=== PATIENT | female | born 2000 | race Caucasian/White ===

== ENCOUNTER 2023-10-30 19:45 | Emergency (ER) | payer MEDICAID, OTHER ==
[~2023-10-30] VITALS: Ht 157.5 cm; Wt 53.5 kg
[2023-10-30] MEDS ORDERED: TETRAcaine 5 ML BOTTLE ONE (21:19)
[2023-10-30] MEDS ORDERED: FLUORESCEIN SODIUM OPHTH 1 EA STRIP ONE (21:19)
[2023-10-30] MEDS: TETRAcaine 5 ML BOTTLE EACHEYE ONE (21:26)
[2023-10-30] MEDS ORDERED: CIPR2.5D14 EACHEYE (21:26)
[2023-10-30] MEDS: FLUORESCEIN SODIUM OPHTH 1 EA STRIP OP ONE (21:26)
[2023-10-30 21:34] VITALS: BP 114/68; TEMP 98.7; O2SAT 95
== END 2023-10-30 21:34 | disposition home or self-care (01) ==
LOC: ER 19:58
DX: S05.02XA Injury of conjunctiva and corneal abrasion without foreign body, left eye, initial encounter (principal); S05.01XA Injury of conjunctiva and corneal abrasion without foreign body, right eye, initial encounter; H00.016 Hordeolum externum left eye, unspecified eyelid; H00.013 Hordeolum externum right eye, unspecified eyelid; Z79.899 Other long term (current) drug therapy; X58.XXXA Exposure to other specified factors, initial encounter; Y93.89 Activity, other specified; Y92.89 Other specified places as the place of occurrence of the external cause; Y99.8 Other external cause status